=== PATIENT | female | born 1945 | race Caucasian/White ===

== ENCOUNTER 2019-10-14 02:54 | Emergency (ER) | payer OTHER, SELFPAY ==
[2019-10-14 02:58] VITALS: BP 120/78; PULSE 86; RESP 16; TEMP 36.7; O2SAT 97; BMI 42.3
[2019-10-14 03:27] LABS: Appearance Urine UA CLOUDY; Bilirubin Urine UA NEGATIVE (NEGATIVE); Color Urine UA RED; Glucose Urine UA 2+ g/dL (Negative); Ketones Urine UA NEGATIVE (NEGATIVE); Leukocyte Esterase Urine UA 1+ (NEGATIVE); Nitrite Urine UA NEGATIVE (Negative); Occult Blood Urine UA 3+ (Negative); Protein Urine UA 2+ (Negative); Specific Gravity Urine UA 1.015 (1.000-1.035); Urobilinogen Urine UA 0.2 E.U./dL (0.2)
[2019-10-14 03:35] LABS: Bacteria Urine Few (2-10); Culture Indicated Urine Specimen Cultured; RBC Urine 30-100/HPF (0-5/HPF); WBC Urine 1-5/HPF (0-5/HPF)
--- NOTE | 2019-10-14 03:53 | ED.FEMALEGU ---
HPI - Female Genitourinary General Chief complaint: Urogenital-Female Stated complaint: thinks she has a UTI Time Seen by Provider: 10/14/19 03:47 Source: patient and family Mode of arrival: Ambulatory History of Present Illness HPI Narrative: Patient here with . Patient is visiting here from out of town. History of diabetes with renal insufficiency/chronic renal failure. Complains of urinary urgency frequency without pain starting 2 hours ago. No prior history of UTI. No fever chills. No abdominal pain no back pain. MD Complaint: UTI Related Data Previous Rx's Medication Instructions Recorded cephalexin [Keflex] 500 mg PO TID #15 cap 10/14/19 cephalexin [Keflex] 500 mg PO TID #21 cap 10/14/19 phenazopyridine [Pyridium] 100 mg PO TID PRN #6 tab 10/14/19 phenazopyridine [Pyridium] 100 mg PO TID PRN #6 tab 10/14/19 Review of Systems Review of Systems Narrative: GENERAL: Denies chills, fatigue, malaise, fever, sweats. HEENT: Denies sinus pain, ear pain, sore throat, difficulty swallowing, dizziness. RESPIRATORY: Denies dyspnea, cough, wheezing, hemoptysis, sputum. CARDIOVASCULAR: Denies chest pain, palpitations, orthopnea, edema, GASTROINTESTINAL: Denies nausea, vomiting, abdominal pain, diarrhea, constipation, melena. : Complains of dysuria, frequency, denies incontinence, complains hematuria, denies urinary retention. MUSCULOSKELETAL: denies weakness, joint pain, or bony pain SKIN: Denies rash, skin lesions, or other NEUROLOGIC: Denies weakness, headache, numbness, change in speech, confusion, seizures, incoordination. PSYCHIATRIC: No concerning psychosocial issues. ROS Unobtainable: All systems reviewed & are unremarkable except as noted in HPI and below Patient History Substance Use Type: does not use Exam Narrative Exam Narrative: GENERAL: patient appears stated age. Well-nourished, well-developed patient, in no distress, not toxic HEAD: Atraumatic. Normocephalic. CARDIOVASCULAR: Regular rate and rhythm without murmurs, gallops, or rubs. RESPIRATORY: Clear to auscultation. Breath sounds equal bilaterally. No wheezes, rales, or rhonchi. GASTROINTESTINAL: Abdomen soft, non-tender, nondistended. BACK: Nontender without deformity or crepitance. No flank tenderness. NEURO: AOx4. SKIN: No rash or erythema of visible areas PSYCH: Not anxious, is cooperative Initial Vital Signs Initial Vital Signs: Vital Signs Temperature 98.0 F 10/14/19 02:58 Pulse Rate 86 10/14/19 02:58 Respiratory Rate 16 10/14/19 02:58 Blood Pressure 120/78 10/14/19 02:58 Pulse Oximetry 97 10/14/19 02:58 Course Orders Ordered: ED Orders 10/14/19 03:22 Urinalysis and Microscopic Stat Urine Culture Stat Discontinued Medications Cephalexin HCl (Keflex) 500 mg PO NOW ONE Stop: 10/14/19 03:53 Last Admin: 10/14/19 03:59 Dose: 500 mg Documented by: FREDY Phenazopyridine HCl (Pyridium) 100 mg PO NOW ONE Stop: 10/14/19 03:53 Last Admin: 10/14/19 03:58 Dose: 100 mg Documented by: FREDY Reevaluation(s) Reevaluation #1: Reviewed labs with patient . Not toxic at discharge. They desire discharge home Time: 04:01 Vital Signs Vital signs: Vital Signs - 8 hr 10/14/19 02:58 10/14/19 04:16 Temperature 98.0 F Pulse Rate 86 74 Respiratory Rate 16 16 Blood Pressure 120/78 164/70 H Pulse Oximetry 97 97 MDM - Female Genitourinary Lab Data Attestation: I reviewed the patient's lab results. Labs: Lab Results 10/14/19 Range/Units 03:22 Urine Color Red Urine Appearance Cloudy Urine pH 5.0 (4.5-8.0) Ur Specific [place] 1.015 (1.000-1.035) Urine Protein 2+ H (Negative) Urine Glucose (UA) 2+ H (Negative) g/dL Urine Ketones Negative (NEGATIVE) Urine Occult Blood 3+ H (Negative) Urine Nitrate Negative (Negative) Urine Bilirubin Negative (NEGATIVE) Urine Urobilinogen 0.2 (0.2) E.U./dL Ur Leukocyte Esterase 1+ H (NEGATIVE) Urine RBC 30-100/hpf H (0-5/HPF) Urine WBC 1-5/hpf (0-5/HPF) Urine Bacteria Few (2-10) H (None) Ur Culture Indicated? Specimen cultured MDM Narrative Medical decision making narrative: Will treat clinically for early UTI no blood work indicated this time. Patient not toxic. No fever. no imaging indicated...no pain Discharge Plan Departure Patient Disposition: Home Clinical Impression: Urinary tract infection Qualifiers: Urinary tract infection type: site unspecified Hematuria presence: with hematuria Qualified Code(s): N39.0 - Urinary tract infection, site not specified Discharge Date/Time: 10/14/19 04:17 Instructions: DI for Urinary Tract Infection (UTI) Activity Restrictions/Additional Instructions: Keep well hydrated. See family doctor when you return home. Return if worse or if any questions or concerns. [facility] [place]. Prescriptions: New phenazopyridine [Pyridium] 100 mg tablet 100 mg PO TID PRN (Reason: pain) Qty: 6 RF: 0 cephalexin [Keflex] 500 mg capsule 500 mg PO TID Qty: 21 RF: 0 phenazopyridine [Pyridium] 100 mg tablet 100 mg PO TID PRN (Reason: pain) Qty: 6 RF: 0 cephalexin [Keflex] 500 mg capsule 500 mg PO TID Qty: 15 RF: 0
[2019-10-14] MEDS: PHENAZOPYRIDINE 100 MG TABLET PO (03:58)
[2019-10-14] MEDS: cephALEXin 250 MG CAPSULE 500 MG PO (03:59)
[2019-10-14 04:16] VITALS: BP 164/70; PULSE 74; RESP 16; O2SAT 97
== END 2019-10-14 04:17 | disposition home or self-care (01) ==
PROVIDERS: Emergency Provider Emergency Medicine
DX: N39.0 Urinary tract infection, site not specified (principal); R31.9 Hematuria, unspecified
CPT/HCPCS: 81001; 87077; 87086; 87186; 99283